=== PATIENT | female | born 1990 | race Hispanic/Latino ===

== ENCOUNTER → 2020-10-09 10:53 | Outpatient (CLI) | payer OTHER, SELFPAY ==
[2020-10-09 19:13] LABS: Add Manual Diff / Slide Review NO; Basophils Absolute Auto 100 /uL (0-100); Eosinophils Absolute Auto 200 /uL (0-450); Eosinophils Percent Auto 2.5 % (2-4); Hematocrit 40.4 % (36-46); Hemoglobin 13.2 g/dL (12.0-16.0); Lymphocytes Absolute Auto 1700 /uL (1100-4500); Lymphocytes Percent Auto 27.5 % (25-40); Mean Corpuscular HGB Conc 32.8 % (30-36); Mean Corpuscular Hemoglobin 27.5 PG (26-34); Mean Corpuscular Volume 83.9 fL (80-100); Monocytes Absolute Auto 300 /uL (0-900); Monocytes Percent Auto 5.4 % (3-14); Neutrophils Absolute Auto 3900 /uL (1500-7000); Neutrophils Percent Auto 63.6 % (50-75); Platelet Count 194 X10^3/uL (150-400); Red Blood Cell Count 4.81 X10^6/uL (4.0-5.2); Red Cell Distribution Width 13.6 % (11.6-14.8); White Blood Cell Count 6.1 X10^3/uL (4.5-11.0)
[2020-10-09 19:16] LABS: HEMOLYSIS < 15 (0-50); Iron 160 ug/dL (37-170)
[2020-10-09 19:20] LABS: Alanine Aminotransferase 16 IU/L (<35); Albumin 4.8 g/dL (3.5-5.0); Albumin Globulin Ratio 1.6 (1.0-2.8); Alkaline Phosphatase 57 U/L (38-126); Aspartate Aminotransferase 26 IU/L (14-36); BUN Creatinine Ratio 20.3 (6-22); Bilirubin Total 0.8 mg/dL (0.2-1.3); Blood Urea Nitrogen 14 mg/dL (7-17); Calcium 9.9 mg/dL (8.4-10.2); Carbon Dioxide 25 mmol/L (22-32); Chloride 106 mmol/L (98-107); Estimated Glomerular Filt Rate > 60.0 mL/min (>60); Glucose 90 mg/dL (70-100); HEMOLYSIS < 15 (0-50); Potassium 4.5 mmol/L (3.4-5.1); Sodium 138 mmol/L (137-145); Total Protein 7.8 g/dL (6.3-8.2)
[2020-10-09 19:27] LABS: Percent Iron Saturation 50 % (15-50); Total Iron Binding Capacity 323 ug/dL (265-497); Transferrin 267 mg/dL (206-381)
[2020-10-09 19:50] LABS: TSH w/ Reflex to FT4 0.87 uIU/mL (0.47-4.68)
[2020-10-09 19:53] LABS: Ferritin 76 ng/mL (6-137)
[2020-10-09 20:07] LABS: Vitamin B12 359 pg/mL (239-931)
== END ==
PROVIDERS: PCP Physician Assistant; Visit Provider Physician Assistant
DX: R53.83 Other fatigue (principal); N92.0 Excessive and frequent menstruation with regular cycle; R63.5 Abnormal weight gain
CPT/HCPCS: 80053; 82607; 82728; 83540; 83550; 84443; 85025

== ENCOUNTER → 2021-05-05 08:27 | Outpatient (CLI) | payer OTHER, SELFPAY ==
[2021-05-07 09:25] LABS: HSV 2 IGG AB < 0.91 index (0.00-0.90)
[2021-05-08 00:07] LABS: HSV I/II IgM <0.91 Ratio (0.00-0.90)
== END ==
PROVIDERS: PCP Physician Assistant; Visit Provider Physician Assistant
DX: Z11.3 Encounter for screening for infections with a predominantly sexual mode of transmission (principal); Z20.2 Contact with and (suspected) exposure to infections with a predominantly sexual mode of transmission
CPT/HCPCS: 86694; 86695; 86696

== ENCOUNTER → 2021-07-04 09:51 | Outpatient (CLI) | payer OTHER, SELFPAY ==
[2021-07-04 19:15] LABS: COVID19 - ORCAS (NP or Nasal) Negative (Negative)
== END ==
PROVIDERS: PCP Physician Assistant; Visit Provider Physician Assistant Medical
DX: Z20.822 Contact with and (suspected) exposure to COVID-19 (principal)
CPT/HCPCS: U0003

== ENCOUNTER → 2021-10-28 16:00 | Outpatient (CLI) | payer OTHER, SELFPAY ==
--- NOTE | 2021-10-28 16:02 | DIET.CONS ---
Dietary Consultation Note Assessment: 31y F referred to nutrition for help with weight management and abnormal weight gain. Pt at home, RD in hospital office, pt agrees to telehealth video visit using [employer] platform. Pt worked c RD up in [place] weekly then twice weekly for 2mo but didn't see results so desires 25# weight loss wants help with portion control slowing down with eating. Prefers lower carb diet. Pt grew up in [facility] [place] eating fried foods and drinking fruit juice. Pt reports her mom is a big woman and dad has DM2. Pt does not want to develop DM2. 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 Pt noticed weight gain after [place] the [place] and getting sedentary job. Ht: 5'9 Wt: 185# BMI: 27 (overweight) UBW: 160# currently no breakfast lunch at noon- sandwich or salad-take out dinner at 5pm- steak, broccoli and cheese, potatoes, avocado or something similar water Drink beer and eat ice cream during the weekend, grocery shopping weekly on weekend. No physical activity currently, was going to go to the gym 1h after work daily. Fruits + berries, melody, pineapple - Vegetables + lettuce, cucumber, tomato, broccoli, onion and garlic, mushrooms - beets, doesn't love veggies Grain Food + - Protein + hummus, lentils, cheese- all, steak, chicken, pork, all fish and seafood, open to nuts/seeds - no beans, milk Nutrition Diagnosis: abnormal weight gain r/t undesirable food choices and physical inactivity aeb pt with 30# weight gain over pandemic, pt works desk job with high stress, pt BMI 27, pt eats two meals daily with reliance on take out. Interventions: Pt goal is to lose 24# in 3mo by sticking to 1500 calories per day and going to gym 1h 5x/w. Pt has worked c RD in past, desires accountability and menu/recipe ideas to support her goal. RD provided pt 3 lunches and 3 dinners to start preparing recipes to meet goal. Pt will weigh self weekly at gym. EER: 1500kcals/d Monitoring/Evaluations: telehealth f/u in 2w to continue teaching and weight monitoring. Electronically Signed by: Breanna Soni 10/28/21 16:02 Clinical Dietitian [place] [address] [place] [address]
[2021-10-28 16:15] VITALS: BMI 27.3
== END ==
PROVIDERS: PCP Physician Assistant; Referring Provider Physician Assistant; Visit Provider Physician Assistant
DX: R63.5 Abnormal weight gain (principal); Z71.3 Dietary counseling and surveillance; Z68.27 Body mass index [BMI] 27.0-27.9, adult
CPT/HCPCS: 97802

== ENCOUNTER → 2021-11-26 12:33 | Outpatient (CLI) | payer OTHER, SELFPAY ==
--- NOTE | 2021-11-26 12:40 | DIET.OUTPTC ---
Dietary Outpatient Consultation Note Consultation Date: 11/26/2021 Pt at home office, RD in hospital office, pt agrees to telehealth video visit using [employer] platform. 31y [address] f/u via telehealth for weight management. Pt reports hunger/fullness scale very helpful for her to identify hunger and time meals appropriately. Pt continues to eat 2 meals daily but limiting to 1500kcals per day per our calculations. Pt has only woken once at night feeling hungry, was able to drink water and fall back asleep. Pt continues to walk 1h daily after work. Pt plans to hire director talent acquisition to prepare her lunches based on the recipes I sent and a personal lines insurance agent to help create workout routine. Pt interested in body composition testing at . Provided pt number to call. F/u in 6w to assess progress and continue education. Electronically Signed by: Breanna Soni 11/26/21 12:40 Clinical Dietitian [address] [address]
== END ==
PROVIDERS: PCP Physician Assistant; Referring Provider Physician Assistant; Visit Provider Physician Assistant
DX: Z71.3 Dietary counseling and surveillance (principal)
CPT/HCPCS: 97803

== ENCOUNTER → 2021-12-24 18:56 | Outpatient (CLI) | payer OTHER, SELFPAY | PROVIDERS: PCP Physician Assistant; Visit Provider Nurse Practitioner Family | DX: J02.9 Acute pharyngitis, unspecified (principal) | CPT/HCPCS: 87070 ==

== ENCOUNTER → 2022-01-12 11:34 | Outpatient (CLI) | payer OTHER, SELFPAY ==
[2022-01-12 20:46] LABS: Hematocrit 36.5 % (36-46); Hemoglobin 12.2 g/dL (12.0-16.0); Mean Corpuscular HGB Conc 33.5 % (30-36); Mean Corpuscular Hemoglobin 27.2 PG (26-34); Mean Corpuscular Volume 81.3 fL (80-100); Platelet Count 149 X10^3/uL (150-400); Red Blood Cell Count 4.48 X10^6/uL (4.0-5.2); Red Cell Distribution Width 14.5 % (11.6-14.8); White Blood Cell Count 6.1 X10^3/uL (4.5-11.0)
[2022-01-12 20:55] LABS: Add Manual Diff / Slide Review YES
[2022-01-12 21:22] LABS: Neutrophils Absolute Manual 4270 /uL (3000-5900); RBC Morphology Normal Morphology; Total Cells Counted 100
[2022-01-12 21:23] LABS: Reactive Lymphocytes 1+
== END ==
PROVIDERS: PCP Physician Assistant; Visit Provider Physician Assistant
DX: M79.10 Myalgia, unspecified site (principal); R50.9 Fever, unspecified; R53.83 Other fatigue
CPT/HCPCS: 85007; 85025

== ENCOUNTER → 2022-05-27 16:07 | Outpatient (CLI) | payer OTHER, SELFPAY | PROVIDERS: PCP Physician Assistant; Visit Provider Physician Assistant | DX: R30.9 Painful micturition, unspecified (principal) | CPT/HCPCS: 87086 ==

== ENCOUNTER → 2022-06-03 08:00 | Outpatient (CLI) | payer OTHER, SELFPAY ==
[2022-06-05 11:28] LABS: Candida species Negative (Negative); Gardnerella vaginalis Positive (Negative); Trichomoas vaginalis Negative (Negative)
== END ==
PROVIDERS: PCP Physician Assistant; Visit Provider Physician Assistant
DX: N89.8 Other specified noninflammatory disorders of vagina (principal)
CPT/HCPCS: 87480; 87510; 87660

== ENCOUNTER → 2022-11-18 02:00 | Outpatient (ROUT) | payer OTHER, SELFPAY ==
[2022-11-18 03:41] LABS: Urine N gonorrhoeae NOT DETECTED
[2022-11-18 04:50] LABS: Urine Chlamydia NOT DETECTED
== END ==
PROVIDERS: PCP Physician Assistant; Visit Provider Obstetrics & Gynecology
DX: Z11.3 Encounter for screening for infections with a predominantly sexual mode of transmission (principal)
CPT/HCPCS: 87491; 87591

== ENCOUNTER → 2023-02-12 14:23 | Outpatient (CLI) | payer OTHER, SELFPAY | PROVIDERS: PCP Family Medicine; Visit Provider Family Medicine | DX: R19.7 Diarrhea, unspecified (principal); R10.9 Unspecified abdominal pain | CPT/HCPCS: 87045; 87177 ==